=== PATIENT | male | born 1995 | race Caucasian/White ===

== ENCOUNTER → 2025-05-13 | Day surgery (SDC) | payer OTHER ==
[~2025-05-13] VITALS: Ht 170.2 cm; Wt 69.0 kg
[~2025-05-13] MED LIST: HYDROMORPHONE HCL 0.5 MG/0.5 ML SYRINGE IV PRN; LIDOCAINE 2% 100 MG/5 ML SDV (FOR ANES.) As Ordered ONE; MIDAZOLAM INJ 2 MG/2 ML VIAL As Ordered ONE; ONDANSETRON 4MG 2ML VIAL As Ordered ONE; ROCURONIUM BROMIDE 50MG/5ML VIAL As Ordered ONE; dexAMETHasone 4 MG/ML 1 ML VIAL As Ordered ONE
[2025-05-13] MEDS: ONDANSETRON 4MG 2ML VIAL IV ONE (21:15)
[2025-05-13] MEDS: GLUCAGON INJ 1 MG VIAL IV STA (21:15)
[2025-05-13 21:29] LABS: PLATELET COUNT, AUTOMATED 254 10^3/uL (150-450)
[2025-05-13 21:51] LABS: INR 0.97
[2025-05-13 21:55] LABS: ALT/SGPT 20 U/L (7.0-40); AST/SGOT 18 U/L (<34); CALCIUM LEVEL 9.8 MG/DL (8.5-10.1); CARBON DIOXIDE LEVEL 22 MMOL/L (20-31); CHLORIDE LEVEL 105 MMOL/L (98-107); CREATININE FOR GFR 0.90 MG/DL (0.70-1.30); GLOMERULAR FILTRATION RATE > 90.0 (>60); POTASSIUM SERUM 4.7 MMOL/L (3.5-5.1); SODIUM LEVEL 141 MMOL/L (136-145)
[2025-05-14] VITALS: TEMP 97.3
[2025-05-14 00:15] VITALS: BP 133/78; O2SAT 98
== END | disposition home or self-care (01) ==
LOC: M ED 19:33 → M SDC 21:37
PROVIDERS: ATTEND Internal Medicine Gastroenterology
DX: T18.12 Food in esophagus (principal); K20.90 Esophagitis, unspecified without bleeding
CPT/HCPCS: 43239; 43247; 70360; 70490; 80053; 85027; 85610; 96374; 96375; 99284; J1100; J1610; J2250; J2405; J2765; J3010